=== PATIENT | male | born 1955 | race Caucasian/White ===

== ENCOUNTER 2018-02-16 07:41 | Inpatient (IN) | payer BC ==
[2018-02-16] MEDS: SOD CHLORIDE 0.9% 100 ML, TRANEXAMIC ACID 3,000 MG IRR (06:00)
[2018-02-16] MEDS: TRANEXAMIC ACID 1,000 MG in DEXTROSE 5% 100 ML IVPB (06:00)
[2018-02-16] MEDS: CEFAZOLIN 2 GM/50 ML (PMX) 50 ML IVPB (06:00)
[~2018-02-16 07:41] MED LIST: BUPIVACAINE 0.5% (SDV) 30 ML, morphine SULFATE (PF) 8 MG, EPINEPHrine 0.3 MG, KETOROLAC... IRR
[2018-02-16] MEDS: GABAPENTIN 300 MG CAP PO ×2 (08:17→20:41)
[2018-02-16] MEDS: DEXAMETHASONE 1 MG TAB PO (08:18)
[2018-02-16] MEDS: traMADol 50 MG TAB PO (08:18)
[2018-02-16] MEDS ORDERED: FENTAnyl 50 MCG/ML VIAL (10:02)
[2018-02-16] MEDS ORDERED: SUCCINYLCHOLINE CHLORIDE 100 MG/5 ML SYG IV (10:22)
[2018-02-16] MEDS ORDERED: CEFAZOLIN 1 GM INJ (10:22)
[2018-02-16] MEDS ORDERED: LIDOCAINE 100 MG SYRINGE (10:22)
[2018-02-16] MEDS ORDERED: ROCURONIUM 50 MG INJ (10:22)
[2018-02-16] MEDS ORDERED: PROPOFOL 20 ML (10:22)
[2018-02-16] MEDS ORDERED: SUGAMMADEX SODIUM 200 MG/2 ML VIAL IV (10:23)
[2018-02-16] MEDS ORDERED: DIPHENHYDRAMINE 50 MG INJ IV ×2 (11:00→12:00)
[2018-02-16] MEDS ORDERED: HYDROmorphONE (0.2 MG/ML) 10ML SYG IV ×2 (11:00)
[2018-02-16] MEDS ORDERED: FENTAnyl 50 MCG/ML VIAL IV ×3 (11:00)
[2018-02-16] MEDS ORDERED: METOCLOPRAMIDE 10 MG INJ IV (11:00)
[2018-02-16] MEDS ORDERED: ONDANSETRON 4 MG INJ IV ×2 (11:00→12:00)
[2018-02-16] MEDS ORDERED: MEPERIDINE 25 MG INJ IV (11:00)
[2018-02-16] MEDS: POLYMYXIN/BACITRACIN 1L IRRIG (11:03)
[2018-02-16] MEDS: LACTATED RINGER'S 1,000 ML IV ×2 (11:38→21:38)
[2018-02-16] MEDS ORDERED: ACETAMINOPHEN 500 MG TAB PO (12:00)
[2018-02-16] MEDS ORDERED: ALBUTEROL HFA 8 GM INHALER INH (12:00)
[2018-02-16] MEDS ORDERED: ZOLPIDEM 5 MG TAB PO (12:00)
[2018-02-16] MEDS ORDERED: MAGNESIUM HYDROXIDE 30ML CUP PO (12:00)
[2018-02-16] MEDS: CA CHLORIDE 10% 10 ML SYRINGE (12:19)
[2018-02-16] MEDS: THROMBIN 5000 UNIT VIAL (12:19)
[2018-02-16] MEDS: TRANEXAMIC ACID 1,000 MG in DEXTROSE 5% 100 ML IV (13:01)
[2018-02-16] MEDS: CEFAZOLIN 1 GM/50 ML (PMX) 50 ML IVPB ×2 (13:01→20:40)
[2018-02-16] MEDS: HYDROmorphONE (0.2 MG/ML) 10ML SYG IV ×2 (13:02→13:09)
[2018-02-16 13:09] LABS: ADD MAN DIFF? NO
[2018-02-16 13:12] LABS: WHITE BLOOD COUNT 10.6 10^3/ul (4.8-10.8)
[2018-02-16 13:12] LABS: BASOPHILS % 0.3 % (0.0-2.0); EOSINOPHILS % 0.2 % (0.0-7.0); HEMATOCRIT 39.8 % (42.0-52.0); HEMOGLOBIN 13.8 g/dl (14.0-18.0); LYMPHOCYTES # 0.7 10^3/ul (0.8-2.9); LYMPHOCYTES % 6.4 % (15.0-51.0); MEAN CORPUSCULAR HEMOGLOBIN 32.2 pg (29.0-33.0); MEAN CORPUSCULAR HGB CONC 34.7 g/dl (32.0-37.0); MEAN CORPUSCULAR VOLUME 92.8 fl (82.0-101.0); MEAN PLATELET VOLUME 10.2 fl (7.4-10.4); MONOCYTE # 0.3 10^3/ul (0.3-0.9); MONOCYTES % 2.7 % (0.0-11.0); NEUTROPHIL # 9.5 10^3/ul (1.6-7.5); NEUTROPHILS % 89.6 % (39.0-77.0); PLATELET COUNT 180 10^3/UL (140-415); RED BLOOD COUNT 4.29 10^6/ul (4.70-6.10); RED CELL DISTRIBUTION WIDTH 12.7 % (11.5-14.5)
[2018-02-16 13:52] LABS: ADD UMIC YES; UR ASCORBIC ACID NEGATIVE (NEGATIVE); UR BACTERIA FEW /HPF (NONE SEEN); UR BILIRUBIN (Dip) NEGATIVE (NEGATIVE); UR BLOOD (Dip) 1+ mg/dL (NEGATIVE); UR CLARITY SLIGHTLY CLOUDY (CLEAR); UR COLOR YELLOW (YELLOW); UR GLUCOSE (Dip) NEGATIVE (NEGATIVE); UR KETONES (Dip) NEGATIVE (NEGATIVE); UR LEUKOCYTE ESTERASE (Dip) NEGATIVE Leu/ul (NEGATIVE); UR NITRITE (Dip) NEGATIVE (NEGATIVE); UR RBC 4 /HPF (0-5); UR SPECIFIC GRAVITY (Dip) 1.026 (1.003-1.030); UR TOTAL PROTEIN (Dip) NEGATIVE (NEGATIVE); UR UROBILINOGEN (Dip) NEGATIVE (NEGATIVE); UR WBC 1 /HPF (0-5)
[2018-02-16] MEDS: OXYCODONE/ACETAMINOPHEN (5/325) TAB PO (17:03)
[2018-02-16] MEDS: DEXAMETHASONE 2 MG TAB PO ×3 (18:00→23:55)
[2018-02-16] MEDS: morphine 2 MG INJ IV ×4 (18:06→23:57)
[2018-02-16] MEDS: KETOROLAC 15 MG INJ IV (20:41)
[2018-02-16] MEDS: FAMOTIDINE 20 MG TAB PO (20:41)
[2018-02-16] MEDS: SENNA/DOCUSATE NA (8.6MG/50MG) TAB PO (20:41)
[2018-02-17] MEDS: KETOROLAC 15 MG INJ IV ×2 (02:35→09:18)
[2018-02-17] MEDS: morphine 2 MG INJ IV ×2 (04:11→12:52)
[2018-02-17] MEDS: CEFAZOLIN 1 GM/50 ML (PMX) 50 ML IVPB (04:12)
[2018-02-17 05:31] LABS: ADD MAN DIFF? NO
[2018-02-17 05:47] LABS: BASOPHILS % 0.2 % (0.0-2.0); EOSINOPHILS % 0.1 % (0.0-7.0); HEMATOCRIT 34.6 % (42.0-52.0); HEMOGLOBIN 11.9 g/dl (14.0-18.0); LYMPHOCYTES # 0.8 10^3/ul (0.8-2.9); LYMPHOCYTES % 8.7 % (15.0-51.0); MEAN CORPUSCULAR HEMOGLOBIN 32.5 pg (29.0-33.0); MEAN CORPUSCULAR HGB CONC 34.4 g/dl (32.0-37.0); MEAN CORPUSCULAR VOLUME 94.5 fl (82.0-101.0); MEAN PLATELET VOLUME 10.5 fl (7.4-10.4); MONOCYTE # 0.9 10^3/ul (0.3-0.9); MONOCYTES % 9.4 % (0.0-11.0); NEUTROPHIL # 7.5 10^3/ul (1.6-7.5); NEUTROPHILS % 81.4 % (39.0-77.0); PLATELET COUNT 148 10^3/UL (140-415); RED BLOOD COUNT 3.66 10^6/ul (4.70-6.10); RED CELL DISTRIBUTION WIDTH 12.6 % (11.5-14.5)
[2018-02-17 05:47] LABS: WHITE BLOOD COUNT 9.2 10^3/ul (4.8-10.8)
[2018-02-17] MEDS: DEXAMETHASONE 2 MG TAB PO (06:16)
[2018-02-17] MEDS: OXYCODONE/ACETAMINOPHEN (5/325) TAB PO ×3 (06:29→16:51)
[2018-02-17] MEDS: SENNA/DOCUSATE NA (8.6MG/50MG) TAB PO (08:59)
[2018-02-17] MEDS: ASPIRIN 81 MG TAB PO (08:59)
[2018-02-17] MEDS: FAMOTIDINE 20 MG TAB PO (08:59)
[2018-02-17] MEDS: LACTATED RINGER'S 1,000 ML IV (09:19)
== END 2018-02-17 19:00 | disposition home or self-care (01) | DRG 470 ==
LOC: REC 07:41 → MS1 17:05
PROC: 0SR904A Replacement of Right Hip Joint with Ceramic on Polyethylene Synthetic Substitute, Uncemented, Open Approach (ICD-10-PCS; principal; 2018-02-16 09:30)
DX: M16.11 Unilateral primary osteoarthritis, right hip (principal)
CPT/HCPCS: 72170; 73530; 81001; 85025; 86850; 86900; 86901; 86999; 87086; 88304; 88311; 97116; 97162; 97530